=== PATIENT | male | born 1995 | race Caucasian/White ===

== ENCOUNTER 2019-04-07 12:56 | Outpatient (CLI) | payer OTHER ==
--- NOTE | 2019-04-07 16:53 | ULT ---
TESTICULAR ULTRASOUND: 04/07/19 Ultrasonography of the scrotum was performed following trauma. Multiple images and worksheets were pr ovided and reviewed. Both testicles are normal in appearance with no sign of laceration, fracture or hematoma. The right t esticle measures 4.3 x 2.5 x 3.2 cm and the left testicle measures 4.4 x 1.9 x 3.2 cm. Blood flow is present in each. Each epididymis is normal in size. There was a tiny 1 mm cyst associated with the right epididymal re gion. A 3 mm calcification is seen in the left side of the scrotal sac just outside of the testicle o f uncertain etiology. Its significance is doubtful. IMPRESSION: No acute scrotal findings or other changes suggestive of trauma. POS: HOME
== END 2019-04-07 12:57 | disposition home or self-care (01) ==
LOC: BURULT 12:56
PROVIDERS: ATTEND Family Medicine
DX: S39.94XA Unspecified injury of external genitals, initial encounter (principal)
CPT/HCPCS: 76870; 93976